=== PATIENT | female | born 1985 | race African-American/Black ===

== ENCOUNTER 2016-07-30 17:08 | Emergency (ER) | payer OTHER ==
[~2016-07-30] VITALS: Ht 167.6 cm; Wt 68.0 kg
[~2016-07-30 17:08] MED LIST: ACETAMINOPHEN 500MG TABLET PO NR; PREN-88 PO
[2016-07-30 17:41] VITALS: BP 91/50
== END 2016-07-30 20:08 | disposition home or self-care (01) ==
LOC: EDSTATUS 17:08 → ER 17:11
DX: M25.561 Pain in right knee (principal); D64.9 Anemia, unspecified; V49.9XXA Car occupant (driver) (passenger) injured in unspecified traffic accident, initial encounter; Y93.89 Activity, other specified; Y92.89 Other specified places as the place of occurrence of the external cause; Y99.8 Other external cause status
CPT/HCPCS: 76805; 99284